=== PATIENT | female | born 1995 | race Caucasian/White ===

== ENCOUNTER 2024-05-16 14:00 | Outpatient (AMB) | payer BC, SELFPAY ==
--- NOTE | 2024-05-16 13:58 | A.OFFPC_ITS ---
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 Intake Note: New pateint visit Conference Interpreter Required: No Allergies No Known Allergies Allergy (Verified 05/16/24 13:59) Tobacco use date assessed: 05/16/24 Dental Screening Dental Screen Date: 05/16/24 Did you have a dental visit in the last 12 months?: No Did you have a dental problem in the last 6 months where you did not have access to dental care?: No Was dental information given to patient?: Patient declined HPI HPI Comments History of Present Illness Details This is a 29-year-old female with a past medical history of migraines, sleep difficulties and eczema presenting to [facility]. Transfer records from [facility] unavailable today. She has chronic difficulty sleeping. She can fall asleep, but she wakes up 3 to 4 times per night. It happens frequently after she has a vivid dream. Her fiance says she snores. She is tired throughout the day. She occasionally talks and sleep walks. She tried Melatonin, Unisom and ZzzQuil. She takes Trazodone 50 mg. Helps, but she still wakes up during the night, and in the morning she feels drowsy. Drinks no caffeine. She is not exercising, but she wants to start going to the gym. 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 Denies depression. She endorses some anxiety. It affects her a couple times per week. No panic attacks. Drinks alcohol only socially on the weekends. She used to drink more, but she cut back a lot. Denies illicit drug use. She is not diagnosed with restless legs syndrome, but she moves her legs frequently when she is seated. She gets eczema on her arms, legs and face mostly during the wintertime. She uses topical clobetasol as needed for 2-3 days, and symptoms resolved. Patient says she is not good with a skin care regimen. Migraines-She has these a couple times per month and treats with Imitrex as needed. The patient and I reviewed her family history today. Her maternal grandmother had breast and ovarian cancer, and her mother was diagnosed with breast cancer in her late 50s. Her mother did not have BRCA testing. The patient is interested in genetic testing. She confirmed she has an OBGYN who does breast exams. ROS: Constitutional: No unexplained weight loss, fever, chills or night sweats. Neurologic: No headache, dizziness, syncop, numbness or tingling in the extremities. Endocrine: No cold or heat intolerance. No polyuria or polydipsia. Psychiatric: See HPI Physical exam: Constitutional: Alert, in no distress. Neck: Supple, Full range of motion. No lymphadenopathy. No palpable thyroid masses. Respiratory: Clear to auscultation. Cardiovascular: S1 S2 regular. No murmurs Neurologic: No focal neurological deficits Psychiatric: Normal mood and affect [facility] Medical History (Updated 05/16/24 @ 14:57 by BIJU Miller) History of umbilical hernia Eczema Sleep difficulties Migraines Acute eczema Surgical History (Updated 05/16/24 @ 14:40 by BIJU Miller) History of umbilical hernia repair H/O wisdom tooth extraction Family History (Updated 05/16/24 @ 14:42 by BIJU Miller) Mother Breast cancer Maternal Grandmother Breast cancer Uterine cancer Paternal Grandmother Breast cancer Maternal Grandfather Alzheimer's dementia Other Substance abuse Social History Housing: Apartment Patient Tobacco Use Status: Never used Tobacco e-Cigarette/Vaping Use: Currently Using Second Hand Smoke Exposure: No service: No Current occupational status: employed Cognitive needs: No Hearing needs: No Vision needs: No Questionnaire AUDIT C Alcohol Use Questionnaire (AUDIT-C) 1. How often do you have a drink containing alcohol?: 2-4 times a month 2. How many drinks containing alcohol do you have on a typical day when you are drinking?: 5 or 6 3. How often do you have six or more drinks on one occasion?: Less than monthly Total Score: 5 Physical exam (Primary Care) Vital Signs: Last Vital Signs Pulse 87 05/16/24 14:08 Resp 12 05/16/24 14:08 BP 116/66 05/16/24 14:08 Pulse Ox 99 05/16/24 14:08 Oxygen Delivery Method Room Air 05/16/24 14:08 BMI result Body Mass Index 28.3 Tobacco/Smoking Status: Tobacco use Status Tobacco use date assessed 05/16/24 05/16/24 13:59 Patient Tobacco Use Status Never used Tobacco 05/16/24 13:59 e-Cigarette/Vaping Use Currently Using 05/16/24 14:12 Coding Level of Care Code New Pt Level 4 (63330) Complex EM visit Add On G2211 Diagnoses Migraine without aura and without status migrainosus, not intractable G43.009 Migraine type: migraine (< 15 days per month) without aura Status migrainosus presence: without status migrainosus Intractability: not intractable Other eczema L30.8 Eczema type: other Sleep difficulties G47.9 Family history of breast cancer Z80.3 Assessment & Plan Assessment & Plan (1) Migraines: Code(s): G43.909 - Migraine, unspecified, not intractable, without status migrainosus Category: Medical Qualifiers: Migraine type: migraine (< 15 days per month) without aura Status migrainosus presence: without status migrainosus Intractability: not intr actable Qualified Code(s): G43.009 - Migraine without aura, not intractable, without status migrainosus Plan: Stable. Sleep dysfunction may be contributing to migraines. Check labs and continue Imitrex as needed. (2) Eczema: Code(s): L30.9 - Dermatitis, unspecified Category: Medical Qualifiers: Eczema type: other Qualified Code(s): L30.8 - Other specified dermatitis Plan: Recommended using an emollient like CeraVe or Vanicream twice daily especially during winter months. Prescribed topical desonide to use on the face. Advised not to use more than 7 days per month and reviewed side effects including skin atrophy and discoloration. Refilled clobetasol cream. Reviewed steroid instructions as above. Do not apply to face, neck or genital area. (3) Sleep difficulties: Code(s): G47.9 - Sleep disorder, unspecified Category: Medical Plan: Check labs for underlying causes of sleep dysfunction and vivid dreams. Sounds like there is component of anxiety. Anxiety reduction recommended. Stop trazodone. Trial of hydroxyzine 25-50 mg nightly as needed. If this is ineffective I would recommend a trial of amitriptyline or nortriptyline since this can also be used prophylactically for migraine headaches. Side effects of hydroxyzine reviewed with the patient. Advised not to drive or operate heavy machinery or drink alcohol with the medication. Sleep study ordered given non restorative sleep, chronic fatigue and snoring. (4) Family history of breast cancer: Code(s): Z80.3 - Family history of malignant neoplasm of breast Plan: Referred to genetic counselor for consideration of testing. Plan Follow up in 8 weeks for a physical exam. Orders: Orders TSH reflex Free T4 Today G25.81 - Restless legs syndrome, G43.909 - Migraine, unspecified, not intractable, without status migrainosus, G47.9 - Sleep disorder, unspecified, L30.9 - Dermatitis, unspecified, Z13.6 - Encounter for screening for cardiovascular disorders Complete Blood Count Auto Diff Today G25.81 - Restless legs syndrome, G43.909 - Migraine, unspecified, not intractable, without status migrainosus, G47.9 - Sleep disorder, unspecified, L30.9 - Dermatitis, unspecified, Z13.6 - Encounter for screening for cardiovascular disorders Vitamin B12 Today G25.81 - Restless legs syndrome, G43.909 - Migraine, unspecified, not intractable, without status migrainosus, G47.9 - Sleep disorder, unspecified, L30.9 - Dermatitis, unspecified, Z13.6 - Encounter for screening for cardiovascular disorders Lipid Panel Today E78.5 - Hyperlipidemia, unspecified, G25.81 - Restless legs s yndrome, G43.909 - Migraine, unspecified, not intractable, without status migrainosus, G47.9 - Sleep disorder, unspecified, L30.9 - Dermatitis, unspecified, Z13.6 - Encounter for screening for cardiovascular disorders Comprehensive Met. Panel Today G25.81 - Restless legs syndrome, G43.909 - Migraine, unspecified, not intractable, without status migrainosus, G47.9 - Sleep disorder, unspecified, L30.9 - Dermatitis, unspecified, Z13.6 - Encounter for screening for cardiovascular disorders Magnesium Today G25.81 - Restless legs syndrome, G43.909 - Migraine, unspecified, not intractable, without status migrainosus, G47.9 - Sleep disorder, unspecified, L30.9 - Dermatitis, unspecified, Z13.6 - Encounter for screening for cardiovascular disorders Vitamin D 1,25 dihydroxy Today G25.81 - Restless legs syndrome, G43.909 - Migraine, unspecified, not intractable, without status migrainosus, G47.9 - Sleep disorder, unspecified, L30.9 - Dermatitis, unspecified, Z13.6 - Encounter for screening for cardiovascular disorders Referrals Genetics Referral Z80.3 - Family history of malignant neoplasm of breast, Z80.49 - Family history of malignant neoplasm of other genital organs Medications: New clobetasol 0.05% 1 appl topical BID 60 grams 0RF 1 week desonide 0.05% 1 appl topical BID 15 grams 0RF eczema on face hydroxyzine HCl 25 - 50 mg (1 - 2 x 25 mg) PO BEDTIME PRN 60 tabs 0RF sleep
[2024-05-16 14:08] VITALS: BP 116/66; PULSE 87; RESP 12; O2SAT 99; BMI 28.3
== END 2024-05-16 14:50 | disposition home or self-care (01) ==
LOC: HO.HMCFM 14:01
PROVIDERS: PCP Physician Assistant Medical; Visit Provider Physician Assistant Medical
DX: G43.009 Migraine without aura, not intractable, without status migrainosus (principal); L30.8 Other specified dermatitis; G47.9 Sleep disorder, unspecified; Z80.3 Family history of malignant neoplasm of breast

== ENCOUNTER → 2024-05-16 14:00 | Outpatient (BNVA) | payer BC, SELFPAY | PROVIDERS: PCP Physician Assistant Medical; Visit Provider Physician Assistant Medical ==

== ENCOUNTER 2024-05-21 10:37 | Outpatient (REF) | payer BC, SELFPAY ==
[2024-05-21 10:48] LABS: MANUAL DIFF FLAG NO
[2024-05-21 10:59] LABS: Basophils Percent Auto 0.3 % (0-2); Eosinophils Absolute Auto 0.1 X10*3/uL (0.0-0.4); Eosinophils Percent Auto 0.7 % (0-4); Hematocrit 36.4 % (37.0-47.0); Hemoglobin 12.2 g/dl (12.0-16.0); Imm Gran Abs Auto 0.04 X10*3/uL (0.00-0.03); Imm Gran Pct Auto 0.4 % (0.0-0.4); Lymphocytes Absolute Auto 3.4 X10*3/uL (1.2-4.9); Lymphocytes Percent Auto 33.2 % (20-40); Mean Corpuscular HGB Conc 33.5 g/dl (31.0-35.0); Mean Corpuscular Hemoglobin 27.5 pg (27.0-33.0); Mean Corpuscular Volume 82.2 fL (80.0-98.0); Monocytes Absolute Auto 0.6 X10*3/uL (0.1-1.2); Monocytes Percent Auto 5.5 % (2-11); Neutrophils Absolute Auto 6.1 x10*3/uL (2.0-8.3); Neutrophils Percent Auto 59.9 % (45-73); Platelet Count 363 X10*3/uL (160-400); Red Blood Count 4.43 X10*6/uL (4.20-5.50); Red Cell Distribution Width 12.8 % (11.0-16.0); White Blood Count 10.2 X10*3/uL (4.8-10.8)
[2024-05-21 11:31] LABS: Alanine Aminotransferase 11 U/L (0-31); Albumin Level 4.4 g/dL (3.5-5.0); Alkaline Phosphatase 49 U/L (39-117); Anion Gap 14 (12-20); Aspartate Amino Transferase 19 U/L (5-31); Bilirubin Total 0.5 mg/dL (0.0-1.0); Blood Urea Nitrogen 9 mg/dL (9-16); Calcium 9.2 mg/dL (8.4-10.2); Carbon Dioxide 25 mmol/L (22-29); Chloride 104 mmol/L (96-108); Cholesterol 226 mg/dL (<200); Estimated Glomerular Filt Rate > 60; Glucose Random 82 mg/dL (60-115); HDL Cholesterol 92 mg/dL (>40); Iron 108 mcg/dL (30-160); LDL Cholesterol Calculated 106 mg/dL (<100); Magnesium 2.1 mg/dL (1.6-2.6); Percent Iron Saturation 23 % (15-50); Potassium 3.9 mmol/L (3.3-5.1); Sodium 139 mmol/L (135-145); Total Iron Binding Capacity 467 mcg/dL (228-428); Total Protein 7.6 g/dL (6.5-8.0); Triglycerides 144 mg/dL (<150); Unsaturated Iron Binding 359 ug/dL
[2024-05-21 11:45] LABS: Ferritin 32 ng/mL (10-122); TSH reflex Free T4 1.58 uIU/mL (0.32-4.0)
[2024-05-21 11:53] LABS: Vitamin B12 310 pg/mL (200-900)
[2024-05-25 17:43] LABS: VITAMIN D (1,25 OH) D3 43 pg/mL; Vit D (1,25-Dihydroxy) Total 43 pg/mL (18-72); Vitamin D (1,25 OH) D2 <8 pg/mL
== END 2024-05-21 10:38 | disposition home or self-care (01) ==
LOC: HO.LAB 10:37
PROVIDERS: PCP Physician Assistant Medical; Visit Provider Physician Assistant Medical
DX: G25.81 Restless legs syndrome (principal); G47.9 Sleep disorder, unspecified; Z13.6 Encounter for screening for cardiovascular disorders; L30.9 Dermatitis, unspecified; G43.909 Migraine, unspecified, not intractable, without status migrainosus; E78.5 Hyperlipidemia, unspecified; G47.8 Other sleep disorders; R53.83 Other fatigue
CPT/HCPCS: 36415; 80053; 80061; 82607; 82652; 82728; 83540; 83735; 84443; 85025

== ENCOUNTER → 2024-06-27 15:01 | Outpatient (REF) | payer BC, SELFPAY | LOC: HO.SL 15:01 | PROVIDERS: PCP Physician Assistant Medical; Visit Provider Physician Assistant Medical | DX: R06.83 Snoring (principal); G47.50 Parasomnia, unspecified; G47.8 Other sleep disorders; R53.83 Other fatigue | CPT/HCPCS: 95806 ==

== ENCOUNTER → 2024-06-27 15:19 | Outpatient (BNV) | payer BC, SELFPAY | PROVIDERS: PCP Physician Assistant Medical; Visit Provider Internal Medicine | DX: R06.83 Snoring (principal); G47.10 Hypersomnia, unspecified | CPT/HCPCS: 95806 ==